=== PATIENT | female | born 1995 | race Two or more races ===

== ENCOUNTER 2018-07-08 11:00 | Emergency (ER) | payer SELFPAY ==
[~2018-07-08] VITALS: Ht 160 cm; Wt 54.4 kg
[2018-07-08 11:23] VITALS: BP 105/73
[2018-07-08] MEDS ORDERED: ACETAMINOPHEN 325 MG TAB PO ONE (12:00)
== END 2018-07-08 17:28 | disposition home or self-care (01) ==
LOC: ER 11:13
DX: S16.1XXA Strain of muscle, fascia and tendon at neck level, initial encounter (principal); S50.02XA Contusion of left elbow, initial encounter; S40.812A Abrasion of left upper arm, initial encounter; Z88.2 Allergy status to sulfonamides; V47.5XXA Car driver injured in collision with fixed or stationary object in traffic accident, initial encounter; W22.11XA Striking against or struck by driver side automobile airbag, initial encounter; Y93.89 Activity, other specified; Y92.410 Unspecified street and highway as the place of occurrence of the external cause; Y99.8 Other external cause status
CPT/HCPCS: 73080